=== PATIENT | male | born 1980 | race African-American/Black ===

== ENCOUNTER 2017-05-27 09:06 | Emergency (ER) | payer SELFPAY ==
[~2017-05-27] VITALS: Ht 188 cm; Wt 106.0 kg
[2017-05-27] MEDS ORDERED: KETOROLAC 60MG/2ML VIAL IM ONE (12:30)
[2017-05-27 12:35] VITALS: BP 103/56
== END 2017-05-27 13:43 | disposition home or self-care (01) ==
LOC: ER 09:20
DX: M25.561 Pain in right knee (principal); I10 Essential (primary) hypertension; E11.9 Type 2 diabetes mellitus without complications; F17.200 Nicotine dependence, unspecified, uncomplicated; F12.10 Cannabis abuse, uncomplicated
CPT/HCPCS: 73562; 96372; 99284; J1885; L1830; Z7610; 99283

== ENCOUNTER 2019-02-28 06:47 | Emergency (ER) | payer OTHER ==
[~2019-02-28] VITALS: Ht 188 cm; Wt 106.0 kg
[2019-02-28] MEDS ORDERED: SODIUM CHLORIDE 0.9% 1,000 ML IV ONE (08:34)
[2019-02-28 08:53] LABS: CLARITY URINE CLEAR (CLEAR); COLOR URINE ORANGE (YELLOW); KETONES URINE 2+ (NEGATIVE); LEUKOCYTE ESTERASE URINE TRACE (NEGATIVE); NITRITE URINE POSITIVE (NEGATIVE); OCCULT BLOOD URINE NEGATIVE (NEGATIVE); PH URINE 5.5 (4.5-8.0); PROTEIN URINE 1+ (NEGATIVE); SPECIFIC GRAVITY URINE 1.019 (1.005-1.030)
[2019-02-28 08:55] LABS: BASOPHILS % 1.2 % (0.0-2.0); EOSINOPHILS % 1.2 % (0.0-5.0); HEMATOCRIT. 35.4 % (42.0-52.0); HEMOGLOBIN. 12.7 g/dL (14.0-18.0); LYMPHOCYTES % 16.8 % (20.0-50.0); MEAN CORPUSCULAR HEMOGLOBIN 31.9 pg (28.0-32.0); MEAN CORPUSCULAR VOLUME 88.8 fL (80.0-94.0); MONOCYTES % 14.6 % (2.0-8.0); NEUTROPHILS % 66.2 % (40.0-76.0); PLATELET 156 x1000/uL (130-400); RED BLOOD CELL COUNT 3.99 mill/uL (4.7-6.1); RED CELL DISTRIBUTION WIDTH 11.7 % (11.6-14.6)
[2019-02-28 08:57] LABS: CHLORIDE 98 mEq/L (98-107)
[2019-02-28 08:59] LABS: INR 1.1
[2019-02-28] MEDS ORDERED: FAMOTIDINE 20MG/2ML VIAL IV ONE (09:15)
[2019-02-28] MEDS ORDERED: DICYCLOMINE HCL 10MG CAPSULE PO ONE (09:15)
[2019-02-28] MEDS ORDERED: ONDANSETRON HCL 4MG/2ML INJ IV ONE (09:15)
[2019-02-28 09:59] VITALS: BP 121/80
== END 2019-02-28 11:29 | disposition home or self-care (01) ==
LOC: ER 06:47
DX: N12 Tubulo-interstitial nephritis, not specified as acute or chronic (principal); R11.2 Nausea with vomiting, unspecified; E11.9 Type 2 diabetes mellitus without complications; I10 Essential (primary) hypertension; F12.10 Cannabis abuse, uncomplicated; Z96.659 Presence of unspecified artificial knee joint
CPT/HCPCS: 36415; 74176; 80053; 81003; 82962; 83690; 85025; 85610; 96374; 96375; 99284; J2405; J3490; J7030